=== PATIENT | female | born 1975 | race Caucasian/White ===

== ENCOUNTER 2017-08-19 13:15 | Emergency (ER) | payer SELFPAY ==
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
[2017-08-19] MEDS ORDERED: Ondansetron ODT TAB* 4 MG SL ONE (13:58)
[2017-08-19] MEDS ORDERED: NS 0.9% 1000 ML* 1,000 ML IV ONE (13:58)
[2017-08-19 14:30] VITALS: BP 104/74
== END 2017-08-19 14:51 | disposition home or self-care (01) ==
LOC: ED 13:15
DX: F19.10 Other psychoactive substance abuse, uncomplicated (principal); F17.200 Nicotine dependence, unspecified, uncomplicated
CPT/HCPCS: 99282; A9270-GY